=== PATIENT | female | born 1935 ===

== ENCOUNTER 2020-09-10 14:34 | Inpatient (IN) | payer MEDICARE, OTHER ==
[2020-09-10] MEDS ORDERED: Acetaminophen 325 MG Suppository ONE (15:20)
[2020-09-10] MEDS ORDERED: Acetaminophen 650 MG Suppository ONE (15:20)
[2020-09-10 15:22] LABS: #Basophils 0.1 10x3/uL (0.0-0.2); #Monocytes 0.5 10x3/uL (0.0-1.1); #Neutrophils 7.9 10x3/uL (1.5-8.4); %Basophils 0.7 % (0.0-2.0); %Lymphocytes 5.1 % (18.0-47.0); %Monocytes 5.4 % (0.0-10.0); %Neutrophils 87.9 % (40.0-75.0); Hemoglobin 12.7 g/dL (12.0-15.5); Mean Corpuscular HGB CONC 34.8 g/dL (32.0-36.0); Mean Corpuscular Hemoglobin 35.4 pg (27.0-33.0); Mean Corpuscular Volume 101.7 fl (81.6-98.3); Mean Platelet Volume 11.3 fl (7.4-10.4); Platelet Count 114 10x3/uL (150-450); Red Blood Cell (RBC) Count 3.59 10x6/uL (3.90-5.03)
[2020-09-10 15:37] LABS: Bilirubin Neg (Negative); Blood, Urine 150 (Negative); Clarity Cloudy (Clear); Glucose, Urine (Dipstick) Normal (Negative); Ketone, Urine 50 mg/dL (Negative); Leukocyte 100 (Negative); Nitrite Negative (Negative); Protein, Urine (Dipstick) 30 mg/dl (Neg-Trace); pH, Urine 6.5 (5.0-9.0)
[2020-09-10 15:42] LABS: ALT (SGPT) 14 U/L (8-55); AST (SGOT) 42 U/L (5-34); Alkaline Phosphatase 82 U/L (40-110); Anion Gap 17 mmol/L (10-20); BUN (Urea Nitrogen) 13 mg/dL (9.8-20.1); Bilirubin, Total 2.6 mg/dL (0.2-1.2); Calc. Creatinine Clearance 0 mL/min (70-130); Calcium 8.6 mg/dL (7.8-10.44); Carbon Dioxide 23 mmol/L (23-31); Chloride 102 mmol/L (98-107); Glucose 171 mg/dL (83-110); Potassium 3.8 mmol/L (3.5-5.1); Sodium 138 mmol/L (136-145)
[2020-09-10 15:50] LABS: Bacteria/HPF 4+ HPF (None Seen); RBC/HPF 0-3 HPF (0-3); Squamous Epithelial 0-3 HPF (0-3); WBC/HPF 21-50 HPF (0-3)
[2020-09-10] MEDS ORDERED: cefTRIAXone\\ROCEPHIN 2 GM VIAL ONE (15:55)
[2020-09-10] MEDS ORDERED: Ondansetron ODT 4 MG TAB PO PRN (17:33)
[2020-09-10 18:00] LABS: Lactic Acid 2.5 mmol/L (0.5-2.2)
[2020-09-10] MEDS ORDERED: Fentanyl 100 MCG/2 ML VIAL ONE (18:56)
[2020-09-10] MEDS ORDERED: Norepinephrine 8 MG/0.9% NS 250 ML ONE (19:05)
[2020-09-10] MEDS ORDERED: Piperacillin/Tazobactam 3.375 GM in Sodium Chloride 0.9% 100 ML IVPB SCH (20:00)
[2020-09-10 20:32] LABS: SARS-CoV-2 NAA Rapid Test Not Detected (NotDetected)
[2020-09-10] MEDS ORDERED: Vancomycin 1 GM in Premix Bag 1 BAG IVPB SCH (21:00)
[2020-09-10] MEDS: Famotidine 20 MG TAB PO SCH (21:25)
[2020-09-10] MEDS: Sodium Chloride 0.9% 1,000 ML IV SCH (21:25)
[2020-09-11] MEDS: Piperacillin/Tazobactam 3.375 GM in Sodium Chloride 0.9% 100 ML IVPB SCH ×3 (00:34→17:03)
[2020-09-11 04:56] LABS: Anion Gap 17 mmol/L (10-20); BUN (Urea Nitrogen) 14 mg/dL (9.8-20.1); Calc. Creatinine Clearance 81 mL/min (70-130); Calcium 7.7 mg/dL (7.8-10.44); Carbon Dioxide 21 mmol/L (23-31); Chloride 107 mmol/L (98-107); Glucose 168 mg/dL (83-110); Sodium 142 mmol/L (136-145)
[2020-09-11 05:05] LABS: Potassium 2.7 mmol/L (3.5-5.1)
[2020-09-11 05:18] LABS: Hemoglobin 11.1 g/dL (12.0-15.5); Mean Corpuscular HGB CONC 34.7 g/dL (32.0-36.0); Mean Corpuscular Hemoglobin 35.2 pg (27.0-33.0); Mean Corpuscular Volume 101.6 fl (81.6-98.3); Mean Platelet Volume 11.2 fl (7.4-10.4); RBC Distribution Width 17.2 % (11.5-14.5); Red Blood Cell (RBC) Count 3.15 10x6/uL (3.90-5.03)
[2020-09-11 05:19] LABS: Platelet Count 86 10x3/uL (150-450)
[2020-09-11 05:28] LABS: Band 22 % (5-11); Lymphocytes 3 % (21-51); Monocytes 4 % (0-10); Reactive Lymphocytes 1 % (0-10)
[2020-09-11 05:29] LABS: Neutrophil 70 % (42-75)
[2020-09-11 05:30] LABS: Platelet Morphology Comment Appears Decreased
[2020-09-11 05:31] LABS: Anisocytosis SLIGHT = 6-15 cells (100X) (0-5/hpf); Basophilic Stippling SLIGHT = 1-2 cells (100X) (None Seen); Macrocytosis SLIGHT = 6-15 cells (100X) (0-5/hpf); Microcytosis SLIGHT = 6-15 cells (100X) (0-5/hpf)
[2020-09-11] MEDS: Potassium Chloride 20 MEQ/100 ML PREMIX BAG IVPB SCH ×3 (06:34→10:49)
[2020-09-11] MEDS ORDERED: Magnesium 2 GM/50 ML 2 GM in Premix Bag 1 BAG IVPB SCH (07:45)
[2020-09-11] MEDS: Sodium Chloride 0.9% 1,000 ML IV SCH ×2 (08:56→17:09)
[2020-09-11] MEDS: Famotidine 20 MG TAB PO SCH ×2 (09:00→21:20)
[2020-09-11] MEDS ORDERED: Enoxaparin Sodium 40 MG/0.4 ML SYRINGE SC SCH (09:00)
[2020-09-11] MEDS: Norepinephrine 8 MG/0.9% NS 250 ML IVPB SCH (09:30)
[2020-09-11] MEDS ORDERED: Vancomycin HCl 750 MG in Sodium Chloride 0.9% 250 ML 250 ML IVPB SCH (13:00)
[2020-09-11] MEDS ORDERED: Vancomycin HCl 500 MG in Sodium Chloride 0.9% 100 ML IVPB SCH (14:00)
[2020-09-11] MEDS ORDERED: cefTRIAXone\\ROCEPHIN 1 GM in Sodium Chloride 0.9% 100 ML IVPB SCH (15:00)
[2020-09-11] MEDS ORDERED: VANCOMYCIN 1.25 GM/250 ML BAG 1.25 GM in Premix Bag 1 BAG IVPB SCH (17:00)
[2020-09-11] MEDS ORDERED: Sodium Chloride 0.9% 100 ML ONE (17:02)
[2020-09-11 17:43] LABS: Potassium 3.6 mmol/L (3.5-5.1)
[2020-09-11] MEDS ORDERED: Metoprolol Tartrate 5 MG/5 ML VIAL IVP SCH (20:00)
[2020-09-11 20:36] LABS: Anion Gap 13 mmol/L (10-20); BUN (Urea Nitrogen) 14 mg/dL (9.8-20.1); Calc. Creatinine Clearance 86 mL/min (70-130); Calcium 7.7 mg/dL (7.8-10.44); Carbon Dioxide 22 mmol/L (23-31); Chloride 110 mmol/L (98-107); Glucose 134 mg/dL (83-110); Magnesium 1.6 mg/dL (1.6-2.6); Potassium 3.1 mmol/L (3.5-5.1); Sodium 142 mmol/L (136-145)
[2020-09-11 20:41] LABS: Troponin I 0.045 ng/mL (< 0.028)
[2020-09-11] MEDS ORDERED: Metoprolol Tartrate 5 MG/5 ML VIAL ONE (20:45)
[2020-09-11 20:57] LABS: INR-International Normal Ratio 1.2; Prothrombin Time 13.6 sec (9.5-12.1)
[2020-09-11] MEDS ORDERED: Apixaban 5 MG TAB PO SCH (21:00)
[2020-09-11] MEDS ORDERED: Diltiazem 125 MG in Sodium Chloride 0.9% 100 ML IVPB SCH (21:15)
[2020-09-11] MEDS ORDERED: Magnesium Sulfate/D5W 1 GM/100 ML BAG IVPB SCH (21:15)
[2020-09-11] MEDS ORDERED: Diltiazem 125 MG/25 ML ONE (21:25)
[2020-09-11] MEDS: Potassium Chloride 20 MEQ in Premix Bag 1 BAG IVPB SCH (22:15)
[2020-09-12] MEDS: Potassium Chloride 20 MEQ in Premix Bag 1 BAG IVPB SCH ×2 (00:27→02:45)
[2020-09-12 00:53] LABS: Troponin I 0.036 ng/mL (< 0.028)
[2020-09-12] MEDS ORDERED: Digoxin 0.5 MG/2 ML AMP SLOW IVP SCH ×3 (01:30→05:00)
[2020-09-12] MEDS: Piperacillin/Tazobactam 3.375 GM in Sodium Chloride 0.9% 100 ML IVPB SCH ×2 (01:31→08:26)
[2020-09-12 04:30] LABS: #Basophils 0.1 10x3/uL (0.0-0.2); #Neutrophils 8.2 10x3/uL (1.5-8.4); %Basophils 0.6 % (0.0-2.0); %Eosinophils 0.3 % (0.0-6.0); %Lymphocytes 7.8 % (18.0-47.0); %Monocytes 10.2 % (0.0-10.0); %Neutrophils 80.4 % (40.0-75.0); Mean Corpuscular HGB CONC 34.4 g/dL (32.0-36.0); Mean Corpuscular Hemoglobin 35.8 pg (27.0-33.0); Mean Corpuscular Volume 104.2 fl (81.6-98.3); Platelet Count 104 10x3/uL (150-450); RBC Distribution Width 17.7 % (11.5-14.5); Red Blood Cell (RBC) Count 3.07 10x6/uL (3.90-5.03); White Blood Cell (WBC) Count 10.1 10x3/uL (3.5-10.5)
[2020-09-12 04:48] LABS: Anion Gap 13 mmol/L (10-20); BUN (Urea Nitrogen) 13 mg/dL (9.8-20.1); Calc. Creatinine Clearance 91 mL/min (70-130); Calcium 7.8 mg/dL (7.8-10.44); Carbon Dioxide 22 mmol/L (23-31); Chloride 111 mmol/L (98-107); Glucose 184 mg/dL (83-110); Magnesium 1.9 mg/dL (1.6-2.6); Potassium 4.1 mmol/L (3.5-5.1); Sodium 142 mmol/L (136-145)
[2020-09-12] MEDS: Norepinephrine 8 MG/0.9% NS 250 ML IVPB SCH (05:59)
[2020-09-12] MEDS ORDERED: Ondansetron PF 4 MG/2 ML Vial IVP SCH (06:00)
[2020-09-12] MEDS: Apixaban 2.5 MG TAB PO SCH ×2 (08:27→21:10)
[2020-09-12] MEDS: Sodium Chloride 0.9% 1,000 ML IV SCH ×2 (08:27→21:10)
[2020-09-12] MEDS: Pantoprazole 40 MG VIAL IVP SCH (08:27)
[2020-09-12] MEDS: cefTRIAXone\\ROCEPHIN 1 GM in Sodium Chloride 0.9% 100 ML IVPB SCH (15:16)
[2020-09-12] MEDS: Dronedarone HCl 400 MG TAB PO SCH (17:06)
[2020-09-13 04:15] LABS: Platelet Count 75 10x3/uL (150-450)
[2020-09-13 04:16] LABS: Hemoglobin 9.4 g/dL (12.0-15.5); Mean Corpuscular HGB CONC 33.1 g/dL (32.0-36.0); Mean Corpuscular Hemoglobin 34.9 pg (27.0-33.0); Mean Corpuscular Volume 105.6 fl (81.6-98.3); Mean Platelet Volume 11.3 fl (7.4-10.4); RBC Distribution Width 17.9 % (11.5-14.5); Red Blood Cell (RBC) Count 2.69 10x6/uL (3.90-5.03); White Blood Cell (WBC) Count 5.3 10x3/uL (3.5-10.5)
[2020-09-13 04:34] LABS: Anion Gap 13 mmol/L (10-20); BUN (Urea Nitrogen) 11 mg/dL (9.8-20.1); Calc. Creatinine Clearance 105 mL/min (70-130); Calcium 7.6 mg/dL (7.8-10.44); Carbon Dioxide 21 mmol/L (23-31); Chloride 109 mmol/L (98-107); Glucose 119 mg/dL (83-110); Potassium 3.4 mmol/L (3.5-5.1); Sodium 140 mmol/L (136-145)
[2020-09-13 05:06] LABS: Band 24 % (5-11); Eosinophils 4 % (0-10); Lymphocytes 15 % (21-51); Monocytes 11 % (0-10); Neutrophil 43 % (42-75); Reactive Lymphocytes 3 % (0-10)
[2020-09-13 05:07] LABS: Platelet Morphology Comment Appears Decreased
[2020-09-13 05:09] LABS: Macrocytosis SLIGHT = 6-15 cells (100X) (0-5/hpf)
[2020-09-13 05:10] LABS: MDiff Complete? YES; Manual Diff?? YES
[2020-09-13] MEDS: Levothyroxine Sodium 75 MCG TAB PO SCH (06:41)
[2020-09-13] MEDS: Sodium Chloride 0.9% 1,000 ML IV SCH ×2 (08:11→17:11)
[2020-09-13] MEDS: Dronedarone HCl 400 MG TAB PO SCH ×2 (08:12→16:06)
[2020-09-13] MEDS: Pantoprazole 40 MG VIAL IVP SCH (08:12)
[2020-09-13] MEDS: Apixaban 2.5 MG TAB PO SCH (08:12)
[2020-09-13] MEDS: cefTRIAXone\\ROCEPHIN 1 GM in Sodium Chloride 0.9% 100 ML IVPB SCH (13:02)
[2020-09-13 16:49] LABS: Vancomycin, Trough 1.9 ug/mL
[2020-09-13] MEDS: Apixaban 5 MG TAB PO SCH (21:27)
[2020-09-14] MEDS: Sodium Chloride 0.9% 1,000 ML IV SCH ×3 (02:49→22:30)
[2020-09-14] MEDS: Levothyroxine Sodium 75 MCG TAB PO SCH (05:37)
[2020-09-14] MEDS: Pantoprazole 40 MG VIAL IVP SCH (08:30)
[2020-09-14] MEDS: Dronedarone HCl 400 MG TAB PO SCH ×2 (08:30→16:58)
[2020-09-14] MEDS: Apixaban 5 MG TAB PO SCH ×2 (08:30→21:55)
[2020-09-14 09:48] VITALS: BMI 36.5
[2020-09-14] MEDS ORDERED: Potassium Chloride 20 MEQ TAB PO SCH (10:15)
[2020-09-14] MEDS: cefTRIAXone\\ROCEPHIN 1 GM in Sodium Chloride 0.9% 100 ML IVPB SCH (14:19)
[2020-09-14] MEDS: Acetaminophen 325 MG TAB PO PRN ×2 (16:55→21:55)
[2020-09-15] MEDS: Levothyroxine Sodium 75 MCG TAB PO SCH (07:42)
[2020-09-15] MEDS: Apixaban 5 MG TAB PO SCH ×2 (08:19→20:17)
[2020-09-15] MEDS: Dronedarone HCl 400 MG TAB PO SCH ×2 (08:19→16:38)
[2020-09-15] MEDS: Pantoprazole 40 MG VIAL IVP SCH (08:19)
[2020-09-15] MEDS: Sodium Chloride 0.9% 1,000 ML IV SCH ×2 (08:20→15:12)
[2020-09-15 09:11] LABS: Anion Gap 12 mmol/L (10-20); BUN (Urea Nitrogen) 7 mg/dL (9.8-20.1); Calc. Creatinine Clearance 93 mL/min (70-130); Calcium 7.8 mg/dL (7.8-10.44); Carbon Dioxide 24 mmol/L (23-31); Chloride 107 mmol/L (98-107); Glucose 131 mg/dL (83-110); Potassium 3.1 mmol/L (3.5-5.1); Sodium 140 mmol/L (136-145)
[2020-09-15] MEDS ORDERED: Potassium Chloride 20 MEQ TAB PO SCH (10:00)
[2020-09-15] MEDS: cefTRIAXone\\ROCEPHIN 1 GM in Sodium Chloride 0.9% 100 ML IVPB SCH (13:03)
[2020-09-15] MEDS: Acetaminophen 325 MG TAB PO PRN (20:17)
[2020-09-16] MEDS: Sodium Chloride 0.9% 1,000 ML IV SCH (00:22)
[2020-09-16 05:15] LABS: Mean Corpuscular Hemoglobin 34.8 pg (27.0-33.0); Mean Corpuscular Volume 105.6 fl (81.6-98.3); Mean Platelet Volume 11.3 fl (7.4-10.4); Platelet Count 118 10x3/uL (150-450); RBC Distribution Width 17.7 % (11.5-14.5); Red Blood Cell (RBC) Count 2.87 10x6/uL (3.90-5.03); White Blood Cell (WBC) Count 4.9 10x3/uL (3.5-10.5)
[2020-09-16 05:34] LABS: Anion Gap 10 mmol/L (10-20); BUN (Urea Nitrogen) 5 mg/dL (9.8-20.1); Calc. Creatinine Clearance 93 mL/min (70-130); Calcium 7.8 mg/dL (7.8-10.44); Carbon Dioxide 24 mmol/L (23-31); Chloride 110 mmol/L (98-107); Glucose 111 mg/dL (83-110); Magnesium 1.6 mg/dL (1.6-2.6); Potassium 3.3 mmol/L (3.5-5.1); Sodium 141 mmol/L (136-145)
[2020-09-16 05:36] LABS: Eosinophils 6 % (0-10); Lymphocytes 21 % (21-51); Monocytes 19 % (0-10); Reactive Lymphocytes 2 % (0-10)
[2020-09-16 05:37] LABS: Macrocytosis SLIGHT = 6-15 cells (100X) (0-5/hpf)
[2020-09-16] MEDS: Levothyroxine Sodium 75 MCG TAB PO SCH (05:46)
[2020-09-16 07:25] LABS: Neutrophil 52 % (42-75)
[2020-09-16] MEDS: Pantoprazole 40 MG VIAL IVP SCH (08:26)
[2020-09-16] MEDS: Dronedarone HCl 400 MG TAB PO SCH ×2 (08:26→16:41)
[2020-09-16] MEDS: Potassium Chloride 20 MEQ TAB PO SCH (08:27)
[2020-09-16] MEDS: Apixaban 5 MG TAB PO SCH ×2 (08:27→20:49)
[2020-09-16] MEDS: Saccharomyces boulardii 250 MG CAP PO SCH (08:27)
[2020-09-16] MEDS ORDERED: Potassium Chloride 20 MEQ TAB PO SCH (12:00)
[2020-09-16] MEDS: cefTRIAXone\\ROCEPHIN 1 GM in Sodium Chloride 0.9% 100 ML IVPB SCH (13:13)
[2020-09-17] MEDS: Levothyroxine Sodium 75 MCG TAB PO SCH (05:55)
[2020-09-17] MEDS: Sodium Chloride 0.9% 1,000 ML IV SCH (06:59)
[2020-09-17] MEDS: Dronedarone HCl 400 MG TAB PO SCH (08:52)
[2020-09-17] MEDS: Saccharomyces boulardii 250 MG CAP PO SCH (08:52)
[2020-09-17] MEDS: Apixaban 5 MG TAB PO SCH (08:53)
[2020-09-17] MEDS: Pantoprazole 40 MG VIAL IVP SCH (08:53)
[2020-09-17] MEDS: Potassium Chloride 20 MEQ TAB PO SCH (08:53)
[2020-09-17 09:04] LABS: Anion Gap 13 mmol/L (10-20); BUN (Urea Nitrogen) 4 mg/dL (9.8-20.1); Calc. Creatinine Clearance 93 mL/min (70-130); Calcium 8.2 mg/dL (7.8-10.44); Carbon Dioxide 22 mmol/L (23-31); Chloride 108 mmol/L (98-107); Glucose 126 mg/dL (83-110); Potassium 3.4 mmol/L (3.5-5.1); Sodium 140 mmol/L (136-145)
[2020-09-17] MEDS ORDERED: Potassium Chloride 20 MEQ TAB PO SCH (12:00)
[2020-09-17 12:34] VITALS: BP 109/69; TEMP 98.1
[2020-09-17] MEDS: cefTRIAXone\\ROCEPHIN 1 GM in Sodium Chloride 0.9% 100 ML IVPB SCH (13:03)
== END 2020-09-17 14:30 | disposition home or self-care (01) | DRG 871 ==
LOC: CSHERS 14:34 → CSHICU 18:00 → CSHTELE 09-13 18:06
PROVIDERS: ADMIT Family Medicine; ATTEND Internal Medicine
PROC: 3E053XZ Introduction of Vasopressor into Peripheral Artery, Percutaneous Approach (ICD-10-PCS; principal; 2020-09-10)
PROC: 02HV33Z Insertion of Infusion Device into Superior Vena Cava, Percutaneous Approach (ICD-10-PCS; 2020-09-10)
DX: A41.51 Sepsis due to Escherichia coli [E. coli] (principal); G93.41 Metabolic encephalopathy; R65.21 Severe sepsis with septic shock; N39.0 Urinary tract infection, site not specified; Z20.822 Contact with and (suspected) exposure to COVID-19; E03.9 Hypothyroidism, unspecified; M19.90 Unspecified osteoarthritis, unspecified site; Z98.49 Cataract extraction status, unspecified eye; Z79.01 Long term (current) use of anticoagulants; Z79.890 Hormone replacement therapy; Z79.899 Other long term (current) drug therapy; E87.6 Hypokalemia; Z74.01 Bed confinement status; Z78.1 Physical restraint status; G31.84 Mild cognitive impairment of uncertain or unknown etiology; I48.0 Paroxysmal atrial fibrillation; R53.81 Other malaise; D64.9 Anemia, unspecified
CPT/HCPCS: 0240U; 36415; 36556; 51701; 71045; 80048; 80053; 80202; 81003; 81015; 83605; 83735; 84443; 84484; 85025; 85610; 85730; 87040; 87077; 87086; 87149; 87186; 93005; 93010; 93306; 94760; 96365; 96367; 96375; C9113; J0696; J1160; J1650; J2405; J2543; J3010; J3370; J3475; J3480; J3490; J7050

== ENCOUNTER 2021-03-21 01:47 | Emergency (ER) | payer MEDICARE, OTHER | END 2021-03-21 01:57 | disposition home or self-care (01) | LOC: CSHERS 01:47 | DX: N39.0 Urinary tract infection, site not specified (principal); I48.91 Unspecified atrial fibrillation; K21.9 Gastro-esophageal reflux disease without esophagitis; G20 Parkinson's disease; Z79.01 Long term (current) use of anticoagulants; Z79.899 Other long term (current) drug therapy | CPT/HCPCS: 99284 ==